=== PATIENT | male | born 1990 | race Two or more races ===

== ENCOUNTER 2023-05-06 15:52 | Outpatient (CLI) | payer OTHER | END 2023-05-06 15:53 | disposition home or self-care (01) | LOC: CSHMRI 15:52 | PROVIDERS: ATTEND Surgery | DX: M47.26 Other spondylosis with radiculopathy, lumbar region (principal); M48.061 Spinal stenosis, lumbar region without neurogenic claudication; M43.17 Spondylolisthesis, lumbosacral region | CPT/HCPCS: 72120; 72148 ==